=== PATIENT | male | born 2000 | race Hispanic/Latino ===

== ENCOUNTER 2021-10-03 12:35 | Emergency (ER) | payer OTHER ==
[~2021-10-03] VITALS: Ht 167.6 cm; Wt 99.8 kg
[~2021-10-03 12:35] MED LIST: AMOX-429 PO
[2021-10-03 12:36] VITALS: BP 158/94
[2021-10-03] MEDS ORDERED: ACETAMINOPHEN 500 MG TABLET ONE (13:09)
[2021-10-03] MEDS ORDERED: ACETAMINOPHEN 500 MG TABLET PO ONE (13:30)
[2021-10-03] MEDS ORDERED: ACET-2247 PO (13:40)
[2021-10-03] MEDS ORDERED: CEPH500B PO (13:45)
== END 2021-10-03 13:48 | disposition home or self-care (01) ==
LOC: EDH 12:35
DX: S02.2XXA Fracture of nasal bones, initial encounter for closed fracture (principal); S00.81XA Abrasion of other part of head, initial encounter; R03.0 Elevated blood-pressure reading, without diagnosis of hypertension; E11.9 Type 2 diabetes mellitus without complications; X58.XXXA Exposure to other specified factors, initial encounter; Y93.89 Activity, other specified; Y92.89 Other specified places as the place of occurrence of the external cause; Y99.8 Other external cause status
CPT/HCPCS: 70160